=== PATIENT | male | born 1990 | race Two or more races ===

== ENCOUNTER 2023-06-02 16:44 | Emergency (ER) | payer OTHER ==
[~2023-06-02] VITALS: Ht 180.3 cm; Wt 112.0 kg
[2023-06-02] MEDS ORDERED: ZESTRIL5 MG (16:58)
== END 2023-06-02 20:19 | disposition home or self-care (01) ==
LOC: ER 16:44
DX: R10.84 Generalized abdominal pain (principal)

== ENCOUNTER 2025-01-31 10:47 | Emergency (ER) | payer OTHER ==
[~2025-01-31] VITALS: Ht 177.8 cm; Wt 112.0 kg
[~2025-01-31 10:47] MED LIST: ZESTRIL5 MG
[2025-01-31] MEDS ORDERED: GLUMETZA500 MG PO (11:54)
[2025-01-31] MEDS ORDERED: SYNTHROID50 MCG PO (11:55)
[2025-01-31] MEDS ORDERED: LIPOFEN150 MG PO (11:55)
[2025-01-31] MEDS ORDERED: KETOROLAC TROMETHAMINE 60 MG VIAL IM STA (13:07)
== END 2025-01-31 14:12 | disposition home or self-care (01) ==
LOC: ER 10:50
DX: M75.20 Bicipital tendinitis, unspecified shoulder (principal); E78.00 Pure hypercholesterolemia, unspecified; E03.8 Other specified hypothyroidism; I10 Essential (primary) hypertension; E11.9 Type 2 diabetes mellitus without complications; Z79.84 Long term (current) use of oral hypoglycemic drugs